=== PATIENT | female | born 1940 | race Caucasian/White ===

== ENCOUNTER 2017-01-07 12:49 | Day surgery (SDC) | payer OTHER ==
--- NOTE | ~2017-01-07 | EGD ---
EGD REPORT [facility] [address] [address] NAME: DENVER LICEA : [birth year] STATUS : REG [facility]#: [id number] AGE: 76 ADM/REG DATE : 01/07/17 MR#: [id number] REPORT SERV DATE: 01/07/17 DICTATED BY: CHAS GOLDEN DATE: 01/07/17 REPORT STATUS : Draft TRANSCRIBED BY: [facility] DATE: 01/07/17 [facility] Patient Name: Denver Licea Date of : 1940 Attending MD: KAVIN GOLDEN MD Procedure Date No Time: 01/07/2017 Procedure: Colonoscopy Indications: High risk colon cancer surveillance: Personal history of colonic polyps Referring MD: Jorge L Hendrickson Medicines: See the Anesthesia note for documentation of the administered medications Complications: No immediate complications. Estimated blood loss: Minimal. Procedure: Pre-Anesthesia Assessment: - ASA Grade Assessment: II - A patient with mild systemic disease. After I obtained informed consent, the scope was passed under direct vision. Throughout the procedure, the patient's blood pressure, pulse, and oxygen saturations were monitored continuously. The PCF [id number] was introduced through the anus and advanced to the terminal ileum. The ileocecal valve, appendiceal orifice, terminal ileum and rectum were photographed. The entire colon was examined. The colonoscopy was performed without difficulty. The patient tolerated the procedure well. The quality of the bowel preparation was adequate. Findings: The perianal and digital rectal examinations were normal. The terminal ileum appeared normal. Diffuse melanosis was found in the entire colon. A flat polyp was found at the hepatic flexure. The polyp was 6 mm in size. The polyp was removed with a cold snare. Resection and retrieval were complete. A sessile polyp was found in the sigmoid colon. The polyp was 7 mm in size. The polyp was removed with a cold snare. Resection and retrieval were complete. A few small-mouthed diverticula were found in the sigmoid colon. Non-bleeding internal hemorrhoids were found during retroflexion and were Grade I (internal hemorrhoids that do not prolapse). No other significant abnormalities were identified in a careful examination of the remainder of the colon. Impression: - The examined portion of the ileum was normal. EGD REPORT [address] [address] NAME: DENVER LICEA : [birth year] STATUS : REG [facility]#: [id number] AGE: 76 ADM/REG DATE : 01/07/17 MR#: [id number] REPORT SERV DATE: 01/07/17 DICTATED BY: CHAS GOLDEN DATE: 01/07/17 REPORT STATUS : Draft TRANSCRIBED BY: [employer] DATE: 01/07/17 - Melanosis in the colon. - One 6 mm polyp at the hepatic flexure. Resected and retrieved. - One 7 mm polyp in the sigmoid colon. Resected and retrieved. - Diverticulosis in the sigmoid colon. - Non-bleeding internal hemorrhoids. Recommendation: - Patient has a contact number available for emergencies. The signs and symptoms of potential delayed complications were discussed with the patient. Return to normal activities tomorrow. Written discharge instructions were provided to the patient. - High fiber diet indefinitely. - Discharge patient to home. - Continue present medications. - Await pathology results. - Repeat colonoscopy in 5 years for surveillance. Procedure Code(s): --- Professional --- 51603, Colonoscopy, flexible, proximal to splenic flexure; with removal of tumor(s), polyp(s), or other lesion(s) by snare technique Diagnosis Code(s): --- Professional --- K64.0, First degree hemorrhoids K57.30, Diverticulosis of large intestine without perforation or abscess without bleeding K63.89, Other specified diseases of intestine D12.5, Benign neoplasm of sigmoid colon D12.3, Benign neoplasm of transverse colon Z86.010, Personal history of colonic polyps CPT copyright 2013 [employer]. All rights reserved. 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 KAVIN GOLDEN MD 01/07/2017 2:21 PM This report has been signed electronically. Number of Addenda: 0 Note Initiated On: 01/07/2017 1:40 PM Scope Withdrawal Time 0 hours 16 minutes 53 seconds EGD REPORT [facility] [address] [address] NAME: DENVER LICEA : [birth year] STATUS : REG [facility] PAT#: [id number] AGE: 76 ADM/REG DATE : 01/07/17 MR#: [id number] REPORT SERV DATE: 01/07/17 DICTATED BY: CHAS GOLDEN DATE: 01/07/17 REPORT STATUS : Draft TRANSCRIBED BY: [employer] DATE: 01/07/17 [address] [id number]
== END 2017-01-07 23:59 | disposition home or self-care (01) ==
LOC: DMU 12:49
PROVIDERS: Internal Medicine Gastroenterology
PROC: 0DBN8ZX Excision of Sigmoid Colon, Via Natural or Artificial Opening Endoscopic, Diagnostic (ICD-10-PCS; 2017-01-07)
PROC: 0DBL8ZX Excision of Transverse Colon, Via Natural or Artificial Opening Endoscopic, Diagnostic (ICD-10-PCS; principal; 2017-01-07 13:00)
DX: Z12.11 Encounter for screening for malignant neoplasm of colon (principal); D12.5 Benign neoplasm of sigmoid colon; D12.3 Benign neoplasm of transverse colon; K64.0 First degree hemorrhoids; K57.30 Diverticulosis of large intestine without perforation or abscess without bleeding; K63.89 Other specified diseases of intestine; M19.90 Unspecified osteoarthritis, unspecified site; F32.9 Major depressive disorder, single episode, unspecified; E03.9 Hypothyroidism, unspecified; Z86.010 Personal history of colon polyps; Z88.0 Allergy status to penicillin
CPT/HCPCS: 88305